=== PATIENT | female | born 1995 | race African-American/Black ===

== ENCOUNTER 2021-07-24 14:44 | Emergency (ER) | payer MEDICAID ==
[~2021-07-24] VITALS: Ht 175.3 cm; Wt 66.0 kg
[2021-07-24 14:50] VITALS: BP 119/68
[2021-07-24 17:35] LABS: BASOPHILS % 0.9 % (0.0-2.0); EOSINOPHILS % 0.3 % (0.0-5.0); HEMATOCRIT. 34.7 % (36.0-48.0); HEMOGLOBIN. 11.8 g/dL (12.0-16.0); LYMPHOCYTES % 26.7 % (20.0-50.0); MEAN CORPUSCULAR HEMOGLOBIN 29.1 pg (28.0-32.0); MEAN CORPUSCULAR VOLUME 85.5 fL (81.0-99.0); MEAN PLATELET VOLUME 8.4 fl (7.4-10.4); MONOCYTES % 9.2 % (2.0-8.0); NEUTROPHILS % 62.9 % (40.0-76.0); PLATELET 288 x1000/uL (130-400); RED BLOOD CELL COUNT 4.05 mill/uL (4.2-5.4); RED CELL DISTRIBUTION WIDTH 12.9 % (11.6-14.6)
[2021-07-24 17:43] LABS: CHLORIDE 106 mEq/L (98-107)
[2021-07-24 18:10] LABS: HCG SCREEN POSITIVE
[2021-07-24 18:13] LABS: B-HCG QUANTITATIVE 52137 mIU/mL (<3)
== END 2021-07-24 18:49 | disposition left against medical advice (07) ==
LOC: ER 14:44
DX: O26.891 Other specified pregnancy related conditions, first trimester (principal); R10.31 Right lower quadrant pain; Z3A.08 8 weeks gestation of pregnancy
CPT/HCPCS: 36415; 80053; 81025; 84702; 84703; 85025; 99283